=== PATIENT | male | born 1975 | race Hispanic/Latino ===

== ENCOUNTER 2020-10-10 07:33 | Day surgery (SDC) | payer MEDICAID ==
[2020-10-05 12:37] LABS: BASOPHILS % (AUTO) 0.6 % (0.0-5.0); LYMPHOCYTES % (AUTO) 34.4 % (21.0-51.0); MEAN CORPUSCULAR HEMOGLOBIN 30.2 pg (27.0-33.0); MEAN CORPUSCULAR HGB CONC 35.1 g/dL (32.0-36.0); MONOCYTES % (AUTO) 6.1 % (3.0-13.0); NEUTROPHILS % (AUTO) 56.3 % (40.0-77.0); PLATELET COUNT (AUTO) 179 K/uL (130-400); RED CELL DISTRIBUTION WIDTH 11.8 % (11.0-15.5); WHITE BLOOD COUNT (AUTO) 4.9 K/uL (4.8-10.8)
[2020-10-05 12:45] LABS: CREATININE 0.9 mg/dL (0.5-1.5)
[~2020-10-10] VITALS: Ht 170.2 cm; Wt 93.4 kg
[2020-10-10] VITALS (15 sets, daily range): BP systolic 119–159; BP diastolic 79–99
[~2020-10-10 07:33] MED LIST: CEFAZOLIN SODIUM 1 GM VIAL IVP SCH; LISI2.5T2 PO; SODIUM CHLORIDE 0.9% 1000ML 1,000 ML IV SCH
[2020-10-10] MEDS ORDERED: CEFAZOLIN SODIUM 1 GM VIAL ONE (08:45)
[2020-10-10] MEDS ORDERED: INSULIN HUMULIN R 100 UNIT/ML 3ML ONE (08:51)
[2020-10-10] MEDS ORDERED: INSULIN HUMULIN R 100 UNIT/ML 3ML SQ SCH ×2 (09:00)
[2020-10-10] MEDS ORDERED: BUPIVACAINE/PF 0.5% 30ML VIAL ONE (09:41)
[2020-10-10] MEDS ORDERED: ONDANSETRON HCL 4 MG/2 ML VIAL ONE (10:04)
[2020-10-10] MEDS ORDERED: MIDAZOLAM HCL 1 MG/ML 2ML VIAL ONE (10:04)
[2020-10-10] MEDS ORDERED: SUCCINYLCHOLINE CHLORIDE 20 MG/ML 10 ML VIAL ONE ×2 (10:04→10:06)
[2020-10-10] MEDS ORDERED: LIDOCAINE PF 2% 5ML ABBOJECT ONE ×2 (10:04→10:06)
[2020-10-10] MEDS ORDERED: DEXAMETHASONE SOD PHOSPHATE 10MG/ML 1ML VIAL ONE (10:04)
[2020-10-10] MEDS ORDERED: GLYCOPYRROLATE 1 MG/5 ML SYRINGE ONE (10:04)
[2020-10-10] MEDS ORDERED: PROPOFOL 10 MG/ML 20ML VIAL IV ONE (10:05)
[2020-10-10] MEDS ORDERED: FENTANYL CITRATE PF 50 MCG/1 ML 2ML VIAL ONE (10:05)
[2020-10-10] MEDS ORDERED: NEOSTIGMINE 5MG/5ML SYR IV ONE (10:05)
[2020-10-10] MEDS ORDERED: ROCURONIUM 10MG/1ML SYR 10 MG/ML ML ONE ×2 (10:05→11:14)
[2020-10-10] MEDS ORDERED: ALBUTEROL INHALER 90MCG/INH IH ONE (10:06)
[2020-10-10] MEDS ORDERED: MEPERIDINE-PF 25 MG/ML SYG ONE ×2 (11:20→12:08)
[2020-10-10] MEDS ORDERED: LIDOCAINE HCL 5% OINT 36GM TUBE TP ONE (12:22)
[2020-10-10] MEDS ORDERED: ENALAPRILAT DIHYDRATE 1.25MG/ML 1ML VIAL IV ONE (12:42)
== END 2020-10-10 14:05 | disposition home or self-care (01) ==
LOC: DAH 07:33
PROVIDERS: ATTEND Surgery
DX: K80.10 Calculus of gallbladder with chronic cholecystitis without obstruction (principal); Z20.828 Contact with and (suspected) exposure to other viral communicable diseases; K40.90 Unilateral inguinal hernia, without obstruction or gangrene, not specified as recurrent; D17.6 Benign lipomatous neoplasm of spermatic cord; J45.909 Unspecified asthma, uncomplicated; E78.00 Pure hypercholesterolemia, unspecified; F41.9 Anxiety disorder, unspecified; F32.9 Major depressive disorder, single episode, unspecified; M19.90 Unspecified osteoarthritis, unspecified site; E11.9 Type 2 diabetes mellitus without complications; M79.7 Fibromyalgia; Z79.84 Long term (current) use of oral hypoglycemic drugs; Z79.899 Other long term (current) drug therapy; Z87.891 Personal history of nicotine dependence
CPT/HCPCS: 36415; 47562; 49505; 80048; 82948 ×3; 85025; A4215; A4221; A4222; A4223; A4452; A4649 ×3; A4663; A6260; C1769 ×3; C1781; C9803; J0330 ×2; J0690; J1100; J1815; J2001 ×2; J2175 ×2; J2250; J2405; J2704; J2710; J3010; J3490 ×3; J7030 ×2; U0003

== ENCOUNTER → 2022-04-06 | Outpatient (CLI) | payer MEDICAID ==
[~2022-04-06] MED LIST changes: -CEFAZOLIN SODIUM 1 GM VIAL IVP SCH; +LISI2.5T13 PO; -LISI2.5T2 PO; -SODIUM CHLORIDE 0.9% 1000ML 1,000 ML IV SCH
== END | disposition home or self-care (01) ==
LOC: RAH 14:52
PROVIDERS: ATTEND Student in an Organized Health Care Education/Training Program
DX: K40.20 Bilateral inguinal hernia, without obstruction or gangrene, not specified as recurrent (principal); R10.0 Acute abdomen
CPT/HCPCS: 74176